=== PATIENT | female | born 1985 | race Two or more races ===

== ENCOUNTER 2022-11-25 10:55 | Inpatient (IN) | payer OTHER ==
[2022-11-25 12:43] LABS: BASO % 0.4 % (0-2.0); EOS % 1.8 % (0-4.5); HEMATOCRIT 33.8 % (32.4-45.2); HEMOGLOBIN 11.4 GM/dL (10.7-15.3); LYMPH % 25.6 % (8-40); MCH 29.5 pg (25.7-33.7); MCHC 33.8 g/dl (32.0-36.0); MEAN CELL VOLUME 87.3 fl (80-96); MONO % 8.6 % (3.8-10.2); NEUT % 63.6 % (42.8-82.8); PLATELET COUNT 192 10^3/uL (134-434); RBC 3.86 M/mm3 (3.60-5.2); RDW 14.4 % (11.6-15.6); WHITE BLOOD COUNT 7.7 K/mm3 (4.0-10.0)
[2022-11-25 12:49] LABS: INR 0.98 (0.83-1.09); PROTHROMBIN TIME (PATIENT) 11.4 SEC (9.7-13.0)
[2022-11-25 12:52] LABS: ACTIVATED PTT 28.8 SECONDS (25.2-36.5)
[2022-11-25 12:55] VITALS: BMI 25.0
[2022-11-25 13:05] LABS: BLOOD UREA NITROGEN 10.6 mg/dL (7-18); CALCIUM 8.6 mg/dL (8.5-10.1)
[2022-11-25 13:09] LABS: CREATININE 0.5 mg/dL (0.55-1.3)
[2022-11-25 13:31] LABS: SYPHILIS W/ RPR CONF NON-REACTIVE (NONREACTIVE)
[2022-11-25 14:00] LABS: HIV INTERPRETATION NEGATIVE (NEGATIVE)
[2022-11-25] MEDS ORDERED: OXYTOCIN 30 UNITS in 0.9% NS 30 UNIT/500 ML INFUS.BAG IVPB ONE (15:45)
[2022-11-25] MEDS ORDERED: OXYTOCIN 30 UNITS in 0.9% NS 30 UNIT/500 ML INFUS.BAG IVPB SCH (15:45)
[2022-11-25] MEDS ORDERED: FENTANYL/BUPIVACAINE/NS/PF - PCEA - 50 ML DISP.SYRIN EP ONE (16:41)
[2022-11-25] MEDS ORDERED: DEXTROSE 5%-LACTATED RINGERS 1,000 ML IV SCH (16:45)
[2022-11-25] MEDS ORDERED: NALOXONE HCL 0.4 MG/ML VIAL IVPUSH PRN (17:12)
[2022-11-25] MEDS ORDERED: FENTANYL/BUPIVACAINE/NS/PF - PCEA - 50 ML DISP.SYRIN EP SCH (17:15)
[2022-11-25] MEDS ORDERED: OXYTOCIN 20 UNITS in 0.9% NS 20 UNIT/1,000 ML INFUS.BAG IV ONE (18:14)
[2022-11-25] MEDS ORDERED: BENZOCAINE 20% 57 GM BOTTLE TP PRN (19:05)
[2022-11-25] MEDS ORDERED: oxyCODONE HCL 5 MG TABLET PO PRN (19:05)
[2022-11-25] MEDS ORDERED: METHYLERGONOVINE MALEATE 0.2 MG/1 ML AMP IM PRN (19:05)
[2022-11-25] MEDS ORDERED: BISACODYL 10 MG SUPP.RECT RC PRN (19:05)
[2022-11-25] MEDS ORDERED: WITCH HAZEL 50% (TUCKS) 40 PAD/JAR PAD TP PRN (19:05)
[2022-11-25] MEDS ORDERED: BENZOCAINE 28 GM HEMORRHOIDAL OINTMENT TP PRN (19:05)
[2022-11-25] MEDS ORDERED: ACETAMINOPHEN 325 MG TABLET (FP) PO PRN (19:05)
[2022-11-25] MEDS ORDERED: OXYTOCIN 20 UNITS in 0.9% NS 20 UNIT/1,000 ML INFUS.BAG IV SCH (19:15)
[2022-11-25 19:37] LABS: CORD BASE EXCESS -6.5 mmol/L (0-2); CORD HCO3 22.5 mmHg (20-29); CORD PCO2 59.6 mmHg (30-78); CORD pH 7.195 (7.14-7.44)
[2022-11-25 19:40] LABS: CORD BASE EXCESS -6.7 mmol/L (0-2); CORD HCO3 19.7 mmHg (20-29); CORD PCO2 42.7 mmHg (30-78); CORD pH 7.283 (7.14-7.44)
[2022-11-26] MEDS: IBUPROFEN 600 MG TABLET (FP) PO PRN ×2 (07:24→16:31)
[2022-11-26 07:39] LABS: BASO % 0.7 % (0-2.0); EOS % 0.5 % (0-4.5); HEMATOCRIT 30.5 % (32.4-45.2); HEMOGLOBIN 10.5 GM/dL (10.7-15.3); LYMPH % 20.9 % (8-40); MCH 29.9 pg (25.7-33.7); MCHC 34.4 g/dl (32.0-36.0); MEAN CELL VOLUME 87.1 fl (80-96); MONO % 8.7 % (3.8-10.2); NEUT % 69.2 % (42.8-82.8); PLATELET COUNT 160 10^3/uL (134-434); RDW 14.3 % (11.6-15.6); WHITE BLOOD COUNT 10.1 K/mm3 (4.0-10.0)
[2022-11-26] MEDS: PRENATAL VITAMINS W/ FOLIC ACID TABLET (FP) PO SCH (09:10)
[2022-11-26 18:24] VITALS: RESP 18
[2022-11-26] MEDS ORDERED: SENNOSIDES/DOCUSATE COMBO (SENNA PLUS) TABLET (UD) PO PRN (22:00)
[2022-11-27] MEDS: PRENATAL VITAMINS W/ FOLIC ACID TABLET (FP) PO SCH (09:43)
[2022-11-27 10:30] VITALS: BP 105/69; PULSE 54; TEMP 97.9
== END 2022-11-27 12:35 | disposition home or self-care (01) | DRG 560 ==
LOC: JDEL 10:55 → JLDR 11:45 → J3W 20:31
PROVIDERS: ADMIT Internal Medicine; ATTEND Internal Medicine
PROC: 0HQ9XZZ Repair Perineum Skin, External Approach (ICD-10-PCS; principal; 2022-11-25)
PROC: 10E0XZZ Delivery of Products of Conception, External Approach (ICD-10-PCS; 2022-11-25)
DX: O70.0 First degree perineal laceration during delivery (principal); Z3A.39 39 weeks gestation of pregnancy; Z37.0 Single live birth
CPT/HCPCS: 36415; 36600; 59025; 80048; 82803; 85025; 85610; 85730; 86780; 86850; 86900; 86901; 87389; 87635